=== PATIENT | female | born 1955 | race Caucasian/White ===

== ENCOUNTER 2018-08-09 17:12 | Emergency (ER) | payer BC ==
[2018-08-09 17:29] VITALS: BP 141/71
--- NOTE | 2018-08-09 17:44 | UC ---
Respiratory Complaint HPI - HPI Summary HPI Summary: PATIENT REPORTS SEVERAL WEEKS OF URI SYMPTOMS WHICH HAVE MOSTLY RESOLVED BUT THE COUGH HAS BEEN PERSISTENT AND SHE NOW HAS A SORE THROAT AND POSTNASAL DRAINAGE. FOUND TO HAVE ELEVATED TEMP OF 100.4 HERE IN THE UC. HAS CHEST CONGESTION. DENIES SHORTNESS OF BREATH. NO NAUSEA/VOMITING. - History of Current Complaint Chief Complaint: UCRespiratory Stated Complaint: SORE THROAT, AND CHEST CONGESTION Time Seen by Provider: 08/09/18 17:27 Hx Obtained From: Patient Onset/Duration: Gradual Onset, Lasting Weeks, Still Present Timing: Constant Severity Initially: Moderate Severity Currently: Mild Pain Intensity: 2 Pain Scale Used: 0-10 Numeric Character: Cough: Nonproductive Aggravating Factors: Nothing Alleviating Factors: Nothing Associated Signs And Symptoms: Positive: Fever, URI, Nasal Congestion. Negative : Dyspnea, Wheezing - Allergies/Home Medications Allergies/Adverse Reactions: Allergies Allergy/AdvReac Type Severity Reaction Status Date / Time cefaclor [From Ceclor] Allergy Diarrhea Verified 08/09/18 17:28 erythromycin base Allergy GI Upset Verified 08/09/18 17:28 sulfamethoxazole Allergy Rash Verified 08/09/18 17:28 [From Bactrim] trimethoprim [From Bactrim] Allergy Rash Verified 08/09/18 17:28 Home Medications: Home Medications Calcium Carb/Vitamin D3/Vit K1 [Calcium + D Soft Chewable Tab] 1 tab PO DAILY [History Confirmed 08/09/18] Cetirizine HCl [Zyrtec] 1 tab PO DAILY 08/09/18 [History Confirmed 08/09/18] Cyanocobalamin (Vitamin B-12) [Vitamin B12] 1 tab PO DAILY 08/09/18 [History Confirmed 08/09/18] Duloxetine HCl [Cymbalta] 30 mg PO DAILY 08/09/18 [History Confirmed 08/09/18] L.acidoph,Paracasei, B.lactis [Probiotic] 1 tab PO DAILY 08/09/18 [History Confirmed 08/09/18] PMH/Surg Hx/FS Hx/Imm Hx - Additional Past Medical History Additional PMH: FIBROMYALGIA Other Cancer History: ENDOMETRIAL CANCER - Surgical History Surgical History: Yes Surgery Procedure, Year, and Place: hysterectomy. breast biopsies - Family History Known Family History: Positive: Non-Contributory - Social History Alcohol Use: Weekly Alcohol Amount: 1-2 / week Substance Use Type: None Smoking Status (MU): Never Smoked Tobacco Review of Systems All Other Systems Reviewed And Are Negative: Yes Constitutional: Positive: Fever, Fatigue ENT: Positive: Sore Throat, Nasal Discharge Respiratory: Positive: Cough Cardiovascular: Positive: Negative Gastrointestinal: Positive: Negative Physical Exam Triage Information Reviewed: Yes Appearance: Well-Appearing, No Pain Distress, Well-Nourished Vital Signs: Initial Vital Signs Temp 100.4 F 08/09/18 17:20 Pulse 104 08/09/18 17:20 Resp 14 08/09/18 17:20 BP 141/71 08/09/18 17:20 Pulse Ox 96 08/09/18 17:20 Laboratory Tests 08/09/18 17:28 Group A Strep Rapid Negative Vital Signs Reviewed: Yes Eyes: Positive: Conjunctiva Clear ENT: Positive: Hearing grossly normal, Pharynx normal, TMs normal Neck: Positive: Supple, Nontender, No Lymphadenopathy Respiratory Exam: Normal Cardiovascular Exam: Normal Abdomen Description: Positive: Soft Musculoskeletal: Positive: No Edema Neurological: Positive: Alert Psychological: Positive: Age Appropriate Behavior Skin: Negative: Rashes Diagnostics - Radiology CXR Radiology Interpretation Completed By: Radiologist Summary of Radiographic Findings: FINDINGS CONSISTENT WITH COPD, NO EVIDENCE FOR ACUTE DISEASE. Respiratory Course/Dx - Course Course Of Treatment: STREP TEST NEGATIVE. CHEST X-RAY SHOWS CHANGES CONSISTENT WITH COPD BUT NO ACUTE DISEASE. PATIENT HAD SECONDHAND SMOKE EXPOSURE A CHILD BUT NONE AN ADULT AND IS NOT A SMOKER. DENIES FEELING SHORT OF BREATH OR WHEEZY. GIVEN LONG-STANDING NATURE SYMPTOMS AND ELEVATED TEMPERATURE AND IN THE SETTING OF PATIENT'S RECENT TRAVEL WILL GO AHEAD AND COVER WITH AN ANTIBIOTIC. STATES SHE HAS TOLERATED AZITHROMYCIN WELL IN THE PAST. ADVISED TO FOLLOW-UP WITH HER PCP WHEN SHE RETURNS BACK HOME TO THE [facility]. - Differential Dx/Diagnosis Provider Diagnosis: Acute bronchitis Discharge - Sign-Out/Discharge Documenting (check all that apply): Patient Departure All imaging exams completed and their final reports reviewed: Yes - Discharge Plan Condition: Stable Disposition: HOME Prescriptions: Azithromyxin KLAUS (NF) [Z-Klaus (Zithromax) 250 mg tabs #6] 2 tab PO .TODAY, THEN 1 DAILY #6 tab Patient Education Materials: Acute Bronchitis (ED) Referrals: No Primary Care Phys,NOPCP [Primary Care Provider] - Additional Instructions: STREP TEST NEGATIVE. CHEST XRAY WITH NO ACUTE ABNORMALITIES. YOUR SYMPTOMS MAY BE VIRALLY MEDIATED BUT GIVEN THE LENGTH OF TIME YOU HAVE BEEN ILL WE WILL COVER YOU WITH ANTIBIOTICS. IF YOU START THE MEDICINE BE SURE TO TAKE IT FOR THE FULL COURSE. REST, HYDRATE, OTC MEDS NEEDED. SEEK FOLLOW-UP WITH YOUR PCP BACK HOME IF YOU ARE NOT IMPROVING OVER THE NEXT 1-2 WEEKS. - Billing Disposition and Condition Condition: STABLE Disposition: Home
== END 2018-08-09 18:20 | disposition home or self-care (01) ==
LOC: UCEAST 17:12
DX: Z88.2 Allergy status to sulfonamides (principal); M79.7 Fibromyalgia; Z85.42 Personal history of malignant neoplasm of other parts of uterus
CPT/HCPCS: 71046; 87651; 99202; G0463